=== PATIENT | male | born 1970 | race Caucasian/White ===

== ENCOUNTER 2018-11-25 12:57 | Emergency (ER) | payer OTHER, SELFPAY ==
[~2018-11-25] VITALS: Ht 182.9 cm; Wt 87.0 kg
[2018-11-25] MEDS ORDERED: PLEASE ENTER ALLERGIES MC SCH (13:30)
[2018-11-25] MEDS ORDERED: PLEASE ENTER HEIGHT AND WEIGHT MC SCH (13:30)
[2018-11-25] MEDS ORDERED: ASPIRIN 81 MG TABLET CHEW PO ONE (13:30)
[2018-11-25 13:59] LABS: BASOPHILS # (AUTO) 0.02 x10^3/uL (0-0.1); BASOPHILS % (AUTO) 0 % (0-1); EOSINOPHILS # (AUTO) 0.14 x10^3/uL (0-0.4); EOSINOPHILS % (AUTO) 1 % (1-7); LYMPHOCYTES # (AUTO) 1.15 x10^3/uL (1-3.4); LYMPHOCYTES % (AUTO) 12 % (22-44); MD NO; MEAN CORPUSCULAR HEMOGLOBIN 30.4 pg (27.5-34.5); MEAN CORPUSCULAR HGB CONC 33.6 g/dL (33.2-36.2); MEAN CORPUSCULAR VOLUME 90.5 fL (81-97); MEAN PLATELET VOLUME 8.6 fL (7.4-10.4); MONOCYTES # (AUTO) 0.69 x10^3/uL (0.2-0.8); MONOCYTES % (AUTO) 7 % (2-9); NEUTROPHILS # (AUTO) 7.67 x10^3/uL (1.8-6.8); NEUTROPHILS % (AUTO) 79 % (42-75); PLATELET COUNT 226 x10^3/uL (130-400); RED BLOOD COUNT 4.84 x10^6/uL (4.38-5.82); RED CELL DISTRIBUTION WIDTH 13.4 % (9.4-14.8)
[2018-11-25 14:10] LABS: ANION GAP 4 mmol/L (5-15); CALCIUM 9.2 mg/dL (8.5-10.1); CHLORIDE 105 mmol/L (98-107)
[2018-11-25 14:11] LABS: ALANINE AMINOTRANSFERASE 22 U/L (12-78)
[2018-11-25 14:16] LABS: ALKALINE PHOSPHATASE 62 U/L (45-117); BILIRUBIN,TOTAL 0.8 mg/dL (0.2-1.0); CREATININE 0.95 mg/dL (0.7-1.3); TOTAL PROTEIN 7.2 g/dL (6.4-8.2); TROPONIN I < 0.015 ng/mL (0.000-0.045)
--- NOTE | 2018-11-25 17:44 | NUR ---
FROM LOBBY TO ROOM AT THIS TIME
--- NOTE | 2018-11-25 18:00 | NUR ---
PT PRESENTING TO ER FOR CP ACROSS CHEST, RADITAING INTO BACK AND UP RIGHT SIDE NECK SINCE YESTERDAY. CONNECTED TO ALL MONITORING, VSS. SEEN AT TOLD TO COME HERE FOR POSSIBLE PNA. AT BEDSIDE. CALL LIGHT WITHIN REACH.
[2018-11-25 18:01] VITALS: BP 121/77
--- NOTE | 2018-11-25 18:06 | NUR ---
MD TO BEDSIDE AT THIS TIME FOR ASSESSMENT.
[2018-11-25] MEDS ORDERED: ASPIRIN 81 MG TABLET CHEW ONE (18:23)
--- NOTE | 2018-11-25 18:28 | NUR ---
ADDITIONAL ORDERS RECEIVED, PT UPDATED AND MEDICATED. AWAITIN TESTING AND RESULTS AT THIS TIME
[2018-11-25 19:09] LABS: TROPONIN I < 0.015 ng/mL (0.000-0.045)
--- NOTE | 2018-11-25 19:17 | NUR ---
MD TO BEDSIDE TO UPDATE PT AND FAMILY ON POC. PT TO BE DCd HOME
== END 2018-11-25 19:48 | disposition home or self-care (01) ==
LOC: ED 19:42
DX: R07.2 Precordial pain (principal); R09.1 Pleurisy; Z87.891 Personal history of nicotine dependence
CPT/HCPCS: 36415; 80053; 84484; 85025; 85379; 93005; 99284